=== PATIENT | female | born 1965 | race Two or more races ===

== ENCOUNTER 2024-08-30 18:48 | Emergency (ER) | payer BC, SELFPAY ==
[2024-08-30 18:49] VITALS: BMI 27.8
[2024-08-30 19:25] VITALS: BP 129/78; PULSE 64; RESP 16; TEMP 37.2; O2SAT 96
--- NOTE | 2024-08-30 19:40 | EDNOTE_ITS ---
<Statement entered by Beatriz Beltrán MD - 08/30/24 23:42> As co-signing physician, I was present and available for consult prn. I concur with the plan and care as documented by the midlevel provider. ED Skin Abcess FB-RME/HPI General Chief complaint: Hand/Wrist Problems Stated complaint: Splinter to left 2nd digit x 4 days Time Seen by Provider: 08/30/24 19:30 Arrival date/time: 08/30/24 18:48 59F with history of HTN presents to ED with 4 days of L index finger pain after she accidentally poked herself while picking oranges. Patient states initially no pain, bleeding, or foreign body sensation. Patient has not had a tetanus shot in the past 5 years. Limitations: no limitations Related Data Previous Rx's ?Medication ?Instructions ?Recorded Hydrocodone/Acetaminophen * (NORCO 1 tab PO Q6H PRN PA IN #30 tabs 02/04/15 7.5/325 *) Hydrocodone/Acetaminophen * (NORCO 1 tab PO Q6H PRN PA IN #30 tabs 03/04/15 7.5/325 *) sulfamethoxazole 800 1 tab PO BID 7 days #14 tabs 08/30/24 mg-trimethoprim 160 mg tablet (Bactrim DS) Allergies Allergy/AdvReac Type Severity Reaction Status Date / Time NKA* Allergy Uncoded 11/15/18 04:46 Review of Systems Review of Systems Systems Reviewed: All systems reviewed, normal except as documented Constitutional Constitutional: Reports system reviewed and no additional complaints, except as documented, Denies fever(s) and Denies headache(s) ENT Ears, Nose, Mouth, and Throat: Denies disequilibrium and Denies headache(s) Cardiovascular Cardiovascular: Reports system reviewed and no additional complaints, except as documented, Denies chest pain and Denies dyspnea Respiratory Respiratory: Reports system reviewed and no additional complaints, except as documented, Denies cough and Denies dyspnea Gastrointestinal Gastrointestinal: Reports system reviewed and no additional complaints, except as documented, Denies abdominal pain, Denies nausea and Denies vomiting Integumentary/Breasts Skin/Breast: Reports as per HPI and Reports skin pain Neurologic Neurologic: Reports system reviewed and no additional complaints, except as documented, Denies confusion, Denies disequilibrium and Denies headache(s) Psychiatric Psychiatric: Denies confusion Past Medical History Social History SMOKING STATUS: Never smoker ED Exam General Limitations: Present no limitations General appearance: Present alert and in no apparent distress Head Head exam: Present atraumatic Eye Eye exam: Present normal appearance, PERRL and EOMI ENT ENT exam: Present normal exam, normal oropharynx and mucous membranes moist Neck Neck exam: Present normal inspection, full ROM and trachea midline Chest Chest inspection: Present normal inspection and symmetric chest wall rise Respiratory Respiratory exam: Present normal lung sounds bilaterally Cardiovascular Cardiovascular exam: Present regular rate, normal rhythm and normal heart sounds Abdominal Exam Abdominal exam: Present soft and normal bowel sounds Extremities Exam Extremities exam: Present full ROM Expanded Upper Extremity Exam Hand exam: Present full ROM (L index finger tip), tenderness and erythema Back Exam Back exam: Present normal inspection and full ROM Neurological Exam Neurological exam: Present alert, oriented X3 and CN II-XII intact Psychiatric Psychiatric exam: Present normal affect and normal mood Skin Skin exam: Present warm, dry, intact and normal color Course Quality Measures none Orders Category Date Time Status Tet,Diphth,Pertuss(Acell)-Tdap [Boostrix Vacc] Med 08/30/24 19:32 Discontinued 0.5 ml IMI .ONCE ONE Trimethoprim/Sulfa 160/800 Ds [Bactrim Ds] Med 08/30/24 19:32 Discontinued 1 tab PO X1 ONE Vital Signs Vital signs: Vital Signs Temperature 98.9 F 08/30/24 19:25 Pulse Rate 64 08/30/24 19:25 Respiratory Rate 16 08/30/24 19:25 Blood Pressure 129/78 08/30/24 19:25 Pulse Oximetry (%) 96 08/30/24 19:25 Oxygen Delivery Method Room Air 08/30/24 19:25 O2 at 96% on RA and WNLs Skin / Abscess / Foreign Body MDM Narrative MDM Narrative:: 59F with history of HTN presents to ED with 4 days of L index finger pain after she accidentally poked herself while picking oranges. Patient states initially no pain, bleeding, or foreign body sensation. Patient has not had a tetanus shot in the past 5 years. Physical exam reveals L index finger tip tenderness, redness, and swelling. No gross area of fluctuance. ROM intact. Patient is afebrile, calm, and alert. Likely cellulitis caused by puncture wound. Tdap and meds given. Patient data External records reviewed:: [facility] previous records Clinical information provided by:: patient Social determinants that could affect healthcare access:: none Patient has the following chronic illnesses:: HTN How is presenting disease/condition affected by chronic disease/condition?: uneffected by Evaluation data The following diagnostics were reviewed and interpreted by me:: other (specify) (none) Lab and/or radiology exams considered but not ordered:: not ordered Interpretation Summary: n/a Medications / Prescriptions Medications or Prescriptions considered but not ordered:: ordered Medication administrations:: Medication Administration History Discontinued Medications Diphtheria/Tetanus/Acell Pertussis (Diphth,Pertuss(Acell),Tet Vac 0.5 Ml Syr) 0.5 ml IMi .ONCE ONE Stop: 08/30/24 19:33 Trimethoprim/Sulfamethoxazole (Trimethoprim/Sulfa 160/800 Ds Tablet) 1 tab PO X1 ONE Stop: 08/30/24 19:33 above Consultations Consultation(s) initiated? (list below): No Diagnosis Skin/Abscess Differential Diagnosis: abscess of skin or subcutaneous tissue, viral exanthem, dermatophytosis, urticaria, herpes zoster, allergic reaction to drug, cellulitis, eczema, insect bites, impetigo and contact dermatitis Most likely diagnosis given after review of the tests above:: cellulitis Admission Indicated Admission indicated?: not indicated Admission Request Was there a request for admission?: No Disposition Plan Disposition Plan: Discharge Discharge Attestation Discharge Attestation: The patient and all family members were given an opportunity to ask questions and understood the discharge instructions. Discharge instructions specifically effects, indications for sooner follow up or return to the emergency department, and the expected course of current diagnosis. Patient condition: Stable Discharge Plan Plan Patient Disposition: HOME (Self Care) Disposition Comment: Stable Prescriptions/Referrals Prescriptions/Med Rec: New sulfamethoxazole-trimethoprim [Bactrim DS] 800-160 mg tablet 1 tab PO BID 7 Days Qty: 14 0RF No Action Hydrocodone/Acetaminophen * (NORCO 7.5/325 *) 1 TAB tablet 1 tab PO Q6H PRN (Reason: PAIN) Qty: 30 0RF Hydrocodone/Acetaminophen * (NORCO 7.5/325 *) 1 TAB tablet 1 tab PO Q6H PRN (Reason: PAIN) Qty: 30 0RF Problem List Clinical Impression: Cellulitis Patient/Caregiver Discharge Instructions Education Materials: ED Cellulitis Additional Instructions: Please follow-up with PCP within 24-48 hours and return immediately if symptoms worsen. Print Language: British Stand Alone Forms: Patient Portal Info Letter PA/ANSWERING SERVICE TELEPHONE OPERATOR Supervising Physician GARLAND/SUREKHA Supervising Physician: Dr. Beltrán
[2024-08-30] MEDS: TRIMETHOPRIM/SULFA 160/800 DS TABLET 1 TAB PO (20:28)
[2024-08-30] MEDS: DIPHTH,PERTUSS(ACELL),TET VAC 0.5 ML SYR IMi (20:28)
== END 2024-08-30 20:33 | disposition home or self-care (01) ==
LOC: SERX 20:37
PROVIDERS: Emergency Provider Emergency Medicine
DX: L03.012 Cellulitis of left finger (principal); S61.231A Puncture wound without foreign body of left index finger without damage to nail, initial encounter; I10 Essential (primary) hypertension; Z23 Encounter for immunization; W26.9XXA Contact with unspecified sharp object(s), initial encounter; Y93.89 Activity, other specified
CPT/HCPCS: 90471; 90715; 99282; A9270

== ENCOUNTER → 2025-01-23 | Outpatient (CLI) | payer SELFPAY ==
--- NOTE | 2025-01-23 14:15 | XR_ITS ---
Examination: Breast ultrasound complete, bilateral Date and time of exam: January 23, 2025 1436 hours INDICATIONS: Sonogram December 09, 2021 left breast 12:00 nodule 22 mm 3:00 nodule 8T millimeter Technique: Real-time grayscale ultrasonographic imaging bilateral breasts, including all 4 quadrants as well as nipple retroareolar and axillary regions. Findings: Sonographic images right breast 12:00 cyst 6 x 5 mm Sonographic images left breast 12:00 nodule circumscribed 19 x 19 mm 2:00 nodule circumscribed 8 x 5 mm 3:00 nodule partially indistinct margins 18 x 14 mm IMPRESSION:: BI-RADS Category 4: Suspicious for malignancy Suspicious nodule left breast 2:00 position, biopsy is needed to exclude breast carcinoma, this mass is amenable to ultrasound-guided breast biopsy for diagnosis
--- NOTE | 2025-01-23 15:15 | XR_ITS ---
Examination: Diagnostic digital mammography, bilateral Computer aided detection 3-D breast Tomosynthesis, bilateral Date and time of exam: January 23, 2025 1408 hours Compared to mammograms dating to April 08, 2014 Technique: Nonmagnified MLO, CC views of the breasts to been obtained, reconstructed from 3-D Tomosynthesis images. R2 computer aided detection program utilized for evaluation of suspicious masses and/or abnormal calcifications. 3-D Tomosynthesis images obtained. Findings: The breasts are heterogeneously dense, which may obscure small masses 12:00 circumscribed nodule 20 mm which corresponds to 12:00 nodule on the breast sonogram today 3:00 nodule outer and slightly upper left breast, likely corresponding to a T millimeter nodule 3:00 position left breast with indistinct margins on the ultrasound study today Benign calcifications Impression: BI-RADS Category 4: Suspicious for malignancy Suspicious nodule 2:00 position left breast, best depicted on the ultrasound left breast study today Biopsy is needed to exclude breast carcinoma This mass is amenable to ultrasound-guided breast biopsy for diagnosis.
== END | disposition home or self-care (01) ==
PROVIDERS: Referring Provider Physician Assistant; Visit Provider Physician Assistant
DX: R92.343 Mammographic extreme density, bilateral breasts (principal); N63.21 Unspecified lump in the left breast, upper outer quadrant
CPT/HCPCS: 76641; 77062; 77066; G0279